=== PATIENT | female | born 1945 | race Caucasian/White ===

== ENCOUNTER 2018-09-29 02:41 | Emergency (ER) | payer OTHER ==
--- NOTE | 2018-09-29 03:26 | PDOC ---
History of Present Illness - General Stated Complaint: VOMITING/DIARRHEA Time Seen by Provider: 09/29/18 03:26 - History of Present Illness Initial Comments: 73 year old female PMhx of Schizophrenia, breast Ca s/p (Lumpectomy and chemo currently in remission), and HTN presenting with nausea, vomiting, and diarrhea for the past day. States her had the exact symptoms two days prior and has now resolved. Her vomiting is NBNB and diarrhea is NB. Her main concern is that she may not get to the bathroom in time and will defecate in her pants. She does not have much abdominal pain but does have some epigastric pain when she vomits. Denies fevers, chills, headache, chest pain, or other symptoms. 09/29/18 03:50 Past History - Past Medical History Allergies/Adverse Reactions: Allergies Allergy/AdvReac Type Severity Reaction Status Date / Time No Known Allergies Allergy Verified 09/29/18 04:01 Home Medications: Ambulatory Orders Atorvastatin Ca [Lipitor] 20 mg PO HS 07/30/15 Fluphenazine HCl [Prolixin -] 3.5 mg PO HS 07/30/15 Quetiapine Fumarate [Seroquel -] 25 mg PO HS 07/30/15 Garlique 1 PO DAILY 09/24/15 Walker [Ultra-Light Rollator] 1 each MC AM #1 each 10/01/15 Anemia: No Asthma: No Cancer: Yes (left breast ca) Cardiac Disorders: No CVA: No COPD: No CHF: No Dementia: No Diabetes: No GI Disorders: No Disorders: No HTN: No Hypercholesterolemia: Yes Liver Disease: No Seizures: No Thyroid Disease: No - Surgical History Abdominal Surgery: No Appendectomy: No Cardiac Surgery: No Cholecystectomy: No Lung Surgery: No Neurologic Surgery: No Orthopedic Surgery: No - Suicide/Smoking/Psychosocial Hx Smoking History: Current every day smoker Have you smoked in the past 12 months: Yes Number of Cigarettes Smoked Daily: 20 'Breaking Loose' booklet given: 09/03/15 Hx Alcohol Use: No Drug/Substance Use Hx: No Substance Use Type: None Hx Substance Use Treatment: No Review of Systems - Review of Systems Constitutional: Yes: Loss of Appetite. No: Chills, Diaphoresis, Fever HEENTM: No: Blurred Vision, Double Vision, Cataracts Respiratory: No: Cough, Orthopnea, Shortness of Breath, SOB with Exertion Cardiac (ROS): No: Chest Pain, Edema, Irregular Heart Rate ABD/GI: Yes: Diarrhea, Nausea, Vomiting. No: Constipated, Poor Appetite, Poor Fluid Intake : No: Burning, Dysuria, Discharge, Frequency Musculoskeletal: No: Gout, Joint Pain, Joint Swelling Integumentary: No: Bruising, Lesions, Lumps Neurological: No: Headache, Numbness, Paresthesia, Tingling Psychiatric: Yes: Anxiety, Depression, Mood Swings Endocrine: No: Flushing, Intolerance to Cold, Intolerance to Heat Hematologic/Lymphatic: No: Anemia, Blood Clots, Easy Bleeding *Physical Exam - Physical Exam General Appearance: Yes: Nourished, Appropriately Dressed. No: Apparent Distress HEENT: positive: EOMI, KENNETH, Normal ENT Inspection, Normal Voice. negative: TMs Normal Neck: positive: Trachea midline, Normal Thyroid, Supple. negative: Tender, Rigid Respiratory/Chest: positive: Lungs Clear, Normal Breath Sounds. negative: Chest Tender, Respiratory Distress, Accessory Muscle Use Cardiovascular: positive: Regular Rhythm, Regular Rate Gastrointestinal/Abdominal: positive: Normal Bowel Sounds, Tender (mild bilateral lower quadrant tenderness), Flat, Soft Lymphatic: negative: Adenopathy, Tenderness Musculoskeletal: positive: Normal Inspection. negative: Decreased Range of Motion Extremity: positive: Normal Capillary Refill, Normal Inspection, Normal Range of Motion. negative: Tender Integumentary: positive: Normal Color, Dry, Warm Neurologic: positive: Fully Oriented, Alert, Normal Mood/Affect, Normal Response , Motor Strength 5/5 ED Treatment Course - LABORATORY CBC & Chemistry Diagram: 09/29/18 04:15 09/29/18 04:55 Medical Decision Making - Medical Decision Making 73 year old schizophrenic female presenting with nausea, vomiting, and diarrhea with lower abdominal pain for the past two days after a positive sick contact ( her who had the same symptoms two days prior). I originally did not want to obtain labs on the patient as she passed the PO challenge with apple juice and a [place] sandwich but she then complained of lower abdominal pain. Her CBC returned with an elevated WBC to 17 but of note her HgB was also 15 with previous values in the 11s so this may be some element of hemoconcentration as opposed to true infection given lack of fever, tachycardia , or other symptoms. Patient pending flat and upright films then reevaluation for discharge. Signed out to Dr. Fontaine in stable condition after drinking two juices and taking a bite of her turkey sandwich. 09/29/18 06:45 *DC/Admit/Observation/Transfer Diagnosis at time of Disposition: Diarrhea Qualifiers: Diarrhea type: unspecified type Qualified Code(s): R19.7 - Diarrhea, unspecified Nausea and vomiting Qualifiers: Vomiting type: unspecified Vomiting Intractability: non-intractable Qualified Code(s): R11.2 - Nausea with vomiting, unspecified - Discharge Dispostion Disposition: HOME Condition at time of disposition: Improved Decision to Admit order: No - Referrals - Patient Instructions - Post Discharge Activity
[2018-09-29 04:03] VITALS: BMI 23.9
[2018-09-29] MEDS ORDERED: SODIUM CHLORIDE 0.9% 500 ML INFUS.BAG IV ONE (04:14)
[2018-09-29] MEDS ORDERED: MAG HYDROX/AL HYDROX/SIMETH 30 ML UNIT-DOSE CUP PO ONE (04:15)
[2018-09-29] MEDS ORDERED: FAMOTIDINE 20 MG/50 ML IVPB 20 MG/50 ML MG IVPB ONE ×2 (04:15→04:22)
[2018-09-29] MEDS ORDERED: MAG HYDROX/AL HYDROX/SIMETH 30 ML UNIT-DOSE CUP ONE (04:22)
[2018-09-29 04:28] LABS: BASO % 0.1 % (0-2.0); EOS % 0.5 % (0-4.5); HEMATOCRIT 45.5 % (32.4-45.2); HEMOGLOBIN 15.8 GM/dL (10.7-15.3); LYMPH % 3.2 % (8-40); MCH 31.1 pg (25.7-33.7); MCHC 34.7 g/dl (32.0-36.0); MEAN CELL VOLUME 89.5 fl (80-96); MEAN PLT VOLUME 9.9 fl (7.5-11.1); MONO % 3.9 % (3.8-10.2); NEUT % 92.3 % (42.8-82.8); PLATELET COUNT 143 K/MM3 (134-434); RBC 5.09 M/mm3 (3.60-5.2); RDW 14.4 % (11.6-15.6); WHITE BLOOD COUNT 16.7 K/mm3 (4.0-10.0)
--- NOTE | 2018-09-29 04:30 | PDOC ---
Attending Attestation - Resident Resident Name: RoseannAnishdesireeloreto - ED Attending Attestation I have performed the following: I have examined & evaluated the patient, The case was reviewed & discussed with the resident, I agree w/resident's findings & plan - HPI HPI: 09/29/18 06:19 N/V/D x 2 days. 09/29/18 20:13 Pt's is admitted to our hospital for GI viral gastroenteritis. She has spent the last couple days with her . - Physicial Exam PE: 09/29/18 20:14 Agree with resident exam - Medical Decision Making 09/29/18 20:14 Pt has normal labs; She will be signed out to the day ER docs. They will monitor her. Pt currently with intractable diarrhea. If she improves she can go home. However, pt lives alone and she has no hoe support. Heart Score/ECG Review - ECG Intrepretation Rhythm: Regular Rhythm - [place]: Normal - P and [place] Prominent R with upright T in V1 (true posterior UT): No Delta Wave(s) Present: No WPW: No - QRS Poor R Wave Progression: No Q Wave Present: No - ST and T Early Repolarization: No Flattened T Waves: No Prolonged Q-T Interval: No - ECG Impressions Normal ECG: Yes Non-specific ST Elevation: No Ischemic Changes: No Bradycardia: No Torsades mikal Pointes: No WPW: No
[2018-09-29] MEDS ORDERED: ACETAMINOPHEN 500 MG TABLET (FP) PO ONE (05:38)
[2018-09-29] MEDS ORDERED: ACETAMINOPHEN 325 MG TABLET (FP) ONE (05:41)
[2018-09-29 06:40] LABS: ALBUMIN 3.6 g/dl (3.4-5.0); ALK PHOS 63 U/L (45-117); AMYLASE 39 U/L (25-115); ANION GAP 6 MMOL/L (8-16); BILIRUBIN,TOTAL 0.7 mg/dL (0.2-1); BLOOD UREA NITROGEN 15 mg/dL (7-18); CALCIUM 7.8 mg/dL (8.5-10.1); CHLORIDE 108 mmol/L (98-107); CO2 25 mmol/L (21-32); CREATININE 0.7 mg/dL (0.55-1.3); GLUCOSE,RANDOM 102 mg/dL (74-106); LIPASE 173 U/L (73-393); POTASSIUM 3.9 mmol/L (3.5-5.1); SGOT/AST 23 U/L (15-37); SGPT/ALT 25 U/L (13-61); SODIUM 139 mmol/L (136-145); TOT PROT 6.4 g/dl (6.4-8.2)
[2018-09-29 08:20] LABS: URINE APPEARANCE Clear; URINE BILIRUBIN Negative (<2.0 mg/dL); URINE COLOR Yellow; URINE GLUCOSE (UA) Negative (NEGATIVE); URINE KETONE Negative (NEGATIVE); URINE LEUK ESTERASE TRACE (NEGATIVE); URINE NITRITE Negative (NEGATIVE); URINE PROTEIN 1+ (NEGATIVE); URINE UROBILINOGEN 0.2 mg/dL (0.2-1.0)
--- NOTE | 2018-09-29 09:08 | PDOC ---
*Physical Exam - Vital Signs Last Vital Signs Temp Pulse Resp BP Pulse Ox 97.6 F 83 18 137/66 97 09/29/18 04:01 09/29/18 04:01 09/29/18 04:01 09/29/18 04:01 09/29/18 04:01 ED Treatment Course - LABORATORY CBC & Chemistry Diagram: 09/29/18 04:15 09/29/18 04:55 - ADDITIONAL ORDERS Additional order review: Laboratory Results 09/29/18 09/29/18 09/29/18 06:25 05:12 04:55 Sodium 139 Potassium 3.9 Chloride 108 H Carbon Dioxide 25 Anion Gap 6 L BUN 15 Creatinine 0.7 Creat Clearance w eGFR > 60 Random Glucose 102 Calcium 7.8 L Total Bilirubin 0.7 AST 23 ALT 25 Alkaline Phosphatase 63 Troponin I < 0.02 Total Protein 6.4 Albumin 3.6 Total Amylase 39 Lipase 173 Urine Color Yellow Urine Appearance Clear Urine pH 5.0 Ur Specific [place] 1.020 Urine Protein 1+ H Urine Glucose (UA) Negative Urine Ketones Negative Urine Blood 2+ H Urine Nitrite Negative Urine Bilirubin Negative Urine Urobilinogen 0.2 Ur Leukocyte Esterase Trace 09/29/18 04:15 Sodium Cancelled Potassium Cancelled Chloride Cancelled Carbon Dioxide Cancelled Anion Gap Cancelled BUN Cancelled Creatinine Cancelled Creat Clearance w eGFR Cancelled Random Glucose Cancelled Calcium Cancelled Total Bilirubin Cancelled AST Cancelled ALT Cancelled Alkaline Phosphatase Cancelled Troponin I Total Protein Cancelled Albumin Cancelled Total Amylase Cancelled Lipase Cancelled Urine Color Urine Appearance Urine pH Ur Specific [place] Urine Protein Urine Glucose (UA) Urine Ketones Urine Blood Urine Nitrite Urine Bilirubin Urine Urobilinogen Ur Leukocyte Esterase 09/29/18 04:15 RBC 5.09 MCV 89.5 MCHC 34.7 RDW 14.4 MPV 9.9 Neutrophils % 92.3 H D Lymphocytes % 3.2 L D Monocytes % 3.9 Eosinophils % 0.5 Basophils % 0.1 - Medications Given in the ED: ED Medications Discontinued Medications Generic Name Dose Route Start Last Admin Trade Name Freq PRN Reason Stop Dose Admin Acetaminophen 1,000 mg 09/29/18 05:38 09/29/18 05:47 Tylenol - PO 09/29/18 05:39 1,000 mg ONCE ONE Administration Al Hydroxide/Mg Hydroxide 30 ml 09/29/18 04:15 09/29/18 04:29 Mylanta Oral Suspension - PO 09/29/18 04:16 30 ml ONCE ONE Administration Famotidine/Sodium Chloride 20 mg in 50 mls @ 100 mls/hr 09/29/18 04:15 04:29 Pepcid 20 Mg Premixed Ivpb - IVPB 09/29/18 04:44 100 mls/hr ONCE ONE Administration Sodium Chloride 1,000 ml 09/29/18 04:14 09/29/18 04:29 Normal Saline - IV 09/29/18 04:15 1,000 ml ONCE ONE Administration Medical Decision Making - Medical Decision Making 09/29/18 09:09 73 year old female PMhx of Schizophrenia, breast Ca s/p (Lumpectomy and chemo currently in remission), and HTN presenting with nausea, vomiting, and diarrhea for the past day. States her had the exact symptoms two days prior and has now resolved. Her vomiting is NBNB and diarrhea is NB. Pending UA and plain films. Pt is ambulatory and tolerating PO. UA shows 2+ blood, slight LE. Not enough urine for WBC or RBC analysis. CXR shows no acute changes. abdominal xray shows stool in colon with air fluid levels (pt is having diarrhea ). Benign abdominal exam. Pt is not complaining of any pain. Pt has white count but could be due to volume contraction. She is afebrile and hemodynamcially stable. She is tolerating PO and able to self hydrate. Will DC home. Given strict return precautions. *DC/Admit/Observation/Transfer Diagnosis at time of Disposition: Diarrhea Qualifiers: Diarrhea type: unspecified type Qualified Code(s): R19.7 - Diarrhea, unspecified Nausea and vomiting Qualifiers: Vomiting type: unspecified Vomiting Intractability: non-intractable Qualified Code(s): R11.2 - Nausea with vomiting, unspecified - Discharge Dispostion Disposition: HOME Condition at time of disposition: Improved - Referrals Referrals: Nelsy Covington MD [Primary Care Provider] - - Patient Instructions Printed Discharge Instructions: Diarrhea, DI for Vomiting -- Adult Additional Instructions: You were seen in the emergency room today for diarrhea, nausea and vomiting. The lab tests were normal. You most likely have a viral infection causing your symptoms. Please keep yourself well hydrated! Drink lots of liquids like water, juice and soups. You can start moving on to solid foods as long as you are able to tolerate liquids. I recommend that you follow up with your doctor in the next few days. Come back to the emergency room if pain gets worse, you cannot stop vomiting, there is blood in the stool, you feel lightheaded or if any new concerning symptom develops. Thank you - Post Discharge Activity
[2018-09-29 09:41] LABS: ANISOCYTOSIS 0; MACROCYTOSIS 0; PLATELET ESTIMATE DECREASED
[2018-09-29 11:01] VITALS: BP 138/69; PULSE 78; TEMP 98.3
--- NOTE | 2018-09-29 16:35 | EKG ---
Test Reason : Blood Pressure : / mmHG Vent. Rate : 079 BPM Atrial Rate : 079 BPM P-R Int : 154 ms QRS Dur : 080 ms QT Int : 390 ms P-R-T Axes : 034 024 074 degrees QTc Int : 447 ms NORMAL SINUS RHYTHM NONSPECIFIC ST ABNORMALITY ABNORMAL ECG WHEN COMPARED WITH ECG OF 11-OCT-2017 09:59, NO SIGNIFICANT CHANGE WAS FOUND Confirmed by Radha Rose ([id number]) on 09/29/2018 4:34:44 PM Referred By: Confirmed By:Radha Rose
== END 2018-09-29 11:17 | disposition home or self-care (01) ==
LOC: JER 02:41
PROC: 3E033GC Introduction of Other Therapeutic Substance into Peripheral Vein, Percutaneous Approach (ICD-10-PCS; principal; 2018-09-29)
DX: B34.9 Viral infection, unspecified (principal); I10 Essential (primary) hypertension; F20.9 Schizophrenia, unspecified; Z85.3 Personal history of malignant neoplasm of breast; F17.210 Nicotine dependence, cigarettes, uncomplicated
CPT/HCPCS: 36415; 71046-TC-FY; 74019-TC-FY; 80053; 81003; 81015; 82150; 83690; 84484; 85025; 93005; 93010; 99283-25

== ENCOUNTER 2019-05-16 10:28 | Emergency (ER) | payer OTHER ==
[2019-05-16 10:37] VITALS: BMI 21.6
--- NOTE | 2019-05-16 11:31 | PDOC ---
History of Present Illness - General Chief Complaint: Injury Stated Complaint: HEAD LAC./FALL Time Seen by Provider: 05/16/19 10:50 History Source: Patient Exam Limitations: No Limitations - History of Present Illness Initial Comments: 05/16/19 11:29 74F with a PMH of Schizophrenia, breast Ca s/p (Lumpectomy and chemo currently in remission), and HTN, on 81mg asa, who presents to the ER with complaints of a fall. The patient is with her . The patient states that her and her were walking on an uneven sidewalk when she tripped on the sidewalk and fell face forward. The patient admits to pain in her R knee, R hand, and on her face. She denies syncope, lightheadedness, palpitations, CP, SOB, nausea, vomiting, and diaphoresis. Past History - Past Medical History Allergies/Adverse Reactions: Allergies Allergy/AdvReac Type Severity Reaction Status Date / Time No Known Allergies Allergy Verified 05/16/19 10:33 Home Medications: Ambulatory Orders Aspirin [Adult Aspirin] 81 mg PO DAILY 09/29/18 Atorvastatin Calcium [Lipitor] 20 mg PO HS 09/29/18 Cholecalciferol (Vitamin D3) [Vitamin D3 -] 0 unit PO DAILY 09/29/18 Fluphenazine HCl 3.5 mg PO DAILY 09/29/18 Quetiapine Fumarate [Seroquel -] 25 mg PO HS 09/29/18 Amox-Tr/K Cl [Augmentin - 875Mg Tablet] 1 tab PO BID #20 tablet 05/16/19 Anemia: No Asthma: No Cancer: Yes (left breast ca) Cardiac Disorders: No CVA: No COPD: No CHF: No Dementia: No Diabetes: No GI Disorders: No Disorders: No HTN: No Hypercholesterolemia: Yes Liver Disease: No Seizures: No Thyroid Disease: No - Surgical History Abdominal Surgery: No Appendectomy: No Cardiac Surgery: No Cholecystectomy: No Lung Surgery: No Neurologic Surgery: No Orthopedic Surgery: No - Immunization History Immunization Up to Date: Yes - Suicide/Smoking/Psychosocial Hx Smoking History: Never smoked Have you smoked in the past 12 months: Yes Number of Cigarettes Smoked Daily: 20 Information on smoking cessation initiated: No 'Breaking Loose' booklet given: 09/03/15 Hx Alcohol Use: No Drug/Substance Use Hx: No Substance Use Type: None Hx Substance Use Treatment: No Review of Systems - Review of Systems Able to Perform ROS?: Yes Comments:: 05/16/19 12:59 GENERAL/CONSTITUTIONAL: + for fall. No fever or chills. No weakness. HEAD, EYES, EARS, NOSE AND THROAT: No change in vision. No ear pain or discharge. No sore throat. CARDIOVASCULAR: No chest pain, palpitations, or lightheadedness. RESPIRATORY: No cough, wheezing, shortness of breath, or hemoptysis. GASTROINTESTINAL: No abdominal pain, nausea, vomiting, diarrhea, or constipation. GENITOURINARY: No dysuria, frequency, hematuria, or change in urination. MUSCULOSKELETAL: + for R knee, R hand, and pain in face. No neck or back pain. SKIN: No rash or lesions. NEUROLOGIC: No headache, numbness, tingling, focal weakness, loss of consciousness, or change in strength/sensation. Is the patient limited Croatian proficient: No *Physical Exam - Vital Signs Last Vital Signs Temp Pulse Resp BP Pulse Ox 97.6 F 83 16 151/78 97 05/16/19 10:33 05/16/19 10:33 05/16/19 10:33 05/16/19 10:33 05/16/19 10:33 - Physical Exam Comments: 05/16/19 12:59 GENERAL: Well developed, well nourished. Awake and alert. No acute distress. HEENT: Hearing grossly normal. Moist mucous membranes. PERRLA, EOMI. No conjunctival pallor. Sclera are non-icteric. NECK: Supple. Full ROM. No JVD. Carotid pulses 2+ and symmetric, without bruits. No thyromegaly. No lymphadenopathy. CARDIOVASCULAR: Regular rate and rhythm. No murmurs, rubs, or gallops. PULMONARY: No evidence of respiratory distress. Lungs clear to auscultation bilaterally. No wheezing, rales or rhonchi. ABDOMINAL: Soft. Non-tender. Non-distended. No rebound or guarding. No organomegaly. Normoactive bowel sounds. MUSCULOSKELETAL: Abrasion over R knee w/o TTP over knee or patella. Abrasion over ulnar aspect of R hand. Abrasion over nasal bridge w/o laceration. Abrasion over forehead. Normal range of motion at all joints. EXTREMITIES: No cyanosis. No clubbing. No edema. No calf tenderness or swelling. SKIN: Warm and dry. Normal capillary refill. No rashes. No jaundice. NEUROLOGICAL: Alert, awake, appropriate. Cranial nerves 2-12 grossly intact. Normal speech. Gait is normal without ataxia. PSYCHIATRIC: Cooperative. Good eye contact. Appropriate mood and affect. ED Treatment Course - RADIOLOGY Radiology Studies Ordered: Category Date Time Status CERVICAL SPINE CT W/O CONTR [CT] Stat CT Scan 05/16/19 10:[address] W/O CONTRAST [CT] Stat CT Scan 05/16/19 10:[address] WITHOUT CONTRAST [CT] Stat CT Scan 05/16/19 10:54 Ordered CHEST PA & LAT [RAD] Stat Radiology 05/16/19 10:55 Ordered KNEE 3 POS-RIGHT [RAD] Stat Radiology 05/16/19 10:55 Ordered PELVIS [RAD] Stat Radiology 05/16/19 10:55 Ordered Medical Decision Making - Medical Decision Making 05/16/19 13:01 74F who presents after a mechanical fall. Will XR hand and knee. CT of head, facial bones, and c-spine. Pt well appearing without any repairable lacerations. Pt noted to have abrasions. Pending XR and CT's. 05/16/19 13:22 CT shows b/l anterior nasal bone fractures. Due to questionable laceration on nose, will treat as open fracture with abx. 05/16/19 14:24 Nasal lac cleaned and placed w/ baci. NOT a laceration, it is an abrasion. Will treat with abx and have PCP and ENT f/u. *DC/Admit/Observation/Transfer Diagnosis at time of Disposition: Nasal bone fracture Qualifiers: Encounter type: initial encounter Fracture type: closed Qualified Code(s): S02.2XXA - Fracture of nasal bones, initial encounter for closed fracture - Discharge Dispostion Disposition: HOME Condition at time of disposition: Stable Decision to Admit order: No - Prescriptions Prescriptions: Amox-Tr/K Cl [Augmentin - 875Mg Tablet] 1 tab PO BID #20 tablet - Referrals Referrals: Nelsy Covington MD [Primary Care Provider] - - Patient Instructions Additional Instructions: Please follow up with Dr. Ravi in 2-3 days. Please see your primary care doctor in 1-2 days. Please return to the ER if you develop any numbness, tingling, weakness, fever, chills, nausea, vomiting, chest pain, or shortness of breath. Please keep your wounds clean and covered in bacitracin 3-4 times per day. - Post Discharge Activity
[2019-05-16] MEDS ORDERED: DIPHTH,PERTUSS(ACELL),TET 0.5 ML DISP.SYRIN IM ONE ×2 (11:34→12:22)
--- NOTE | 2019-05-16 11:34 | PDOC ---
Attending Attestation - Resident Resident Name: Zackary Oconnor - ED Attending Attestation I have performed the following: I have examined & evaluated the patient, The case was reviewed & discussed with the resident, I agree w/resident's findings & plan, Exceptions are as noted - HPI HPI: 05/16/19 11:30 74 F with h/o Schizophrenia, breast Ca s/p (Lumpectomy and chemo currently in remission), and HTN presenting to ED after trip and fall. Pt was walking outside when she tripped over a bump in the sidewalk and fell forward. Pt landed on her R knee and R hand. Pt also hit her head against the ground face first. Denies LOC. Denies any preceding dizziness/lightheadedness. No CP/SOB/ palpitations. Pt now reports frontal headache. Denies N/V. - Physicial Exam PE: 05/16/19 11:31 Agree with resident exam - Medical Decision Making 05/16/19 11:34 74 F with mechanical fall, with abrasions to face, forehead, R hand, and R knee. - CT head/c-spine/facial bones - XRs - Tdap 05/16/19 12:55 CT shows bilateral nasal bone fxs Imaging otherwise negative Pt refused hand and knee X rays Will give abx ppx for open nasal bone fx Pt is well appearing, with normal vitals. Clinically stable for DC at this time. I discussed the physical exam findings, ancillary test results and final diagnoses with the patient. I answered all of the patient's questions. The patient was satisfied with the care received and felt comfortable with the discharge plan and treatment plan. The patient agrees to follow up with the primary care physician within 24-72 hours.
[2019-05-16] MEDS ORDERED: BACITRACIN 15 GM TUBE TOPICAL OINTMENT ONE (12:36)
[2019-05-16] MEDS ORDERED: ACETAMINOPHEN 325 MG TABLET (FP) PO ONE (14:03)
[2019-05-16] MEDS ORDERED: BACITRACIN 15 GM TUBE TOPICAL OINTMENT TP ONE (14:05)
[2019-05-16] MEDS ORDERED: BACITRACIN 0.9 GM PACKET ONE (14:05)
[2019-05-16] MEDS ORDERED: ACETAMINOPHEN 325 MG TABLET (FP) ONE (14:20)
[2019-05-16 14:47] VITALS: BP 116/79; PULSE 68; TEMP 97.8
== END 2019-05-16 14:30 | disposition home or self-care (01) ==
LOC: JER 10:28
PROC: 3E0234Z Introduction of Serum, Toxoid and Vaccine into Muscle, Percutaneous Approach (ICD-10-PCS; principal; 2019-05-16)
DX: S02.2XXA Fracture of nasal bones, initial encounter for closed fracture (principal); S80.211A Abrasion, right knee, initial encounter; S60.511A Abrasion of right hand, initial encounter; W18.39XA Other fall on same level, initial encounter; Y93.01 Activity, walking, marching and hiking; Y92.480 Sidewalk as the place of occurrence of the external cause; Y99.8 Other external cause status; I10 Essential (primary) hypertension; E78.00 Pure hypercholesterolemia, unspecified; F20.9 Schizophrenia, unspecified; Z85.3 Personal history of malignant neoplasm of breast
CPT/HCPCS: 70450-TC; 70486-TC; 71046-TC-FY; 72125-TC; 72170-TC-FY; 90715; 99282-25

== ENCOUNTER 2020-03-16 09:06 | Day surgery (SDC) | payer OTHER ==
[2020-03-11 14:25] VITALS: BMI 21.9
[2020-03-16 12:51] VITALS: BP 143/62; PULSE 76; TEMP 98.9
--- NOTE | 2020-03-17 14:10 | PATH ---
Surgical Pathology Report Patient Name: CINDY SALCEDO [facility]. Rec. #: [id number] /Age/Gender: 1945 (Age: 74) / F Account: [id number] Location: ASU-ENDOSCOPY Taken: 03/16/2020 Received: 03/16/2020 Reported: 03/17/2020 Physicians: Rolanda Rosenthal M.D. Specimen(s) Received A: SIGMOID POLYPS B: HEPATIC FLEXURE C: RECTAL POLYPS Clinical History Positive cologuard test Postoperative diagnosis: Colon polyps, diverticulosis, hemorrhoids Final Diagnosis A. SIGMOID COLON, POLYPS, BIOPSY: HYPERPLASTIC POLYP(S). B. COLON, HEPATIC FLEXURE, POLYPECTOMY: TUBULAR ADENOMA. C. RECTAL POLYPS, BIOPSY/POLYPECTOMY: HYPERPLASTIC POLYP(S). Electronically Signed Juana Segura M.D. Gross Description A. Received in formalin, labeled "sigmoid polyps biopsy" are 2 bowman, irregular portions of soft tissue averaging 0.3 cm. in greatest dimension. The specimens are submitted in toto in one cassette. B. Received in formalin, labeled "hepatic flexure" is a bowman, polypoid portion of soft tissue measuring 0.7 cm. in greatest dimension. The specimen is submitted in toto in one cassette. C. Received in formalin, labeled "rectal polyps biopsy" are 5 bowman, irregular portions of soft tissue ranging from 0.1-0.4 cm. in greatest dimension. The specimens are submitted in toto in one cassette. DL/03/16/2020 saudi/03/16/2020
== END 2020-03-16 12:35 | disposition home or self-care (01) ==
LOC: JASU-ENDO 09:06
PROVIDERS: ATTEND Internal Medicine Gastroenterology
PROC: 0DBL8ZX Excision of Transverse Colon, Via Natural or Artificial Opening Endoscopic, Diagnostic (ICD-10-PCS; 2020-03-16)
PROC: 0DBN8ZX Excision of Sigmoid Colon, Via Natural or Artificial Opening Endoscopic, Diagnostic (ICD-10-PCS; 2020-03-16)
PROC: 3E0H8GC Introduction of Other Therapeutic Substance into Lower GI, Via Natural or Artificial Opening Endoscopic (ICD-10-PCS; 2020-03-16)
PROC: 0DBP8ZX Excision of Rectum, Via Natural or Artificial Opening Endoscopic, Diagnostic (ICD-10-PCS; principal; 2020-03-16 10:00)
DX: Z12.11 Encounter for screening for malignant neoplasm of colon (principal); D12.5 Benign neoplasm of sigmoid colon; D12.3 Benign neoplasm of transverse colon; K62.1 Rectal polyp; K57.30 Diverticulosis of large intestine without perforation or abscess without bleeding; K64.8 Other hemorrhoids
CPT/HCPCS: 88305-TC

== ENCOUNTER 2023-07-15 16:29 | Inpatient (IN) | payer OTHER ==
[2023-07-15 16:46] VITALS: BMI 19.6
[2023-07-15 18:35] LABS: HEMATOCRIT 35.5 % (32.4-45.2); MCH 27.5 pg (25.7-33.7); MCHC 33.8 g/dl (32.0-36.0); MEAN CELL VOLUME 81.4 fl (80-96); MEAN PLT VOLUME 9.1 fl (7.5-11.1); PLATELET COUNT 352 10^3/uL (134-434); RBC 4.36 M/mm3 (3.60-5.2); RDW 15.3 % (11.6-15.6); WHITE BLOOD COUNT 20.9 K/mm3 (4.0-10.0)
[2023-07-15 18:39] LABS: EPI CELLS 2 /uL (0-25.1); HYALINE CASTS 0 /uL (0-3.1); PH,URINE 5.5 (5.0-8.0); URINE APPEARANCE CLEAR; URINE BACTERIA 8 /uL (0-1359); URINE BILIRUBIN NEGATIVE (NEGATIVE); URINE COLOR YELLOW; URINE GLUCOSE (UA) NEGATIVE (NEGATIVE); URINE KETONE NEGATIVE (NEGATIVE); URINE LEUK ESTERASE NEGATIVE (NEGATIVE); URINE NITRITE NEGATIVE (NEGATIVE); URINE PROTEIN NEGATIVE (NEGATIVE); URINE RBC 31 /uL (0-23.9); URINE UROBILINOGEN 0.2 mg/dL (0.2-1.0); URINE WBC 4 /uL (0-25.8)
[2023-07-15 18:40] LABS: POTASSIUM 4.3 mmol/L (3.5-5.1)
[2023-07-15 18:42] LABS: CALCIUM 8.3 mg/dL (8.5-10.1)
[2023-07-15 18:43] LABS: ALBUMIN 3.3 g/dl (3.4-5.0); BLOOD UREA NITROGEN 8.4 mg/dL (7-18); MAGNESIUM 2.1 mg/dL (1.8-2.4)
[2023-07-15 18:43] LABS: INR 1.16 (0.83-1.09); PROTHROMBIN TIME (PATIENT) 13.4 SEC (9.7-13.0)
[2023-07-15 18:46] LABS: ACTIVATED PTT 27.9 SECONDS (25.2-36.5)
[2023-07-15 18:46] LABS: CREATININE 0.5 mg/dL (0.55-1.3)
[2023-07-15 18:47] LABS: BILIRUBIN,TOTAL 0.5 mg/dL (0.2-1)
[2023-07-15] MEDS ORDERED: AZITHROMYCIN IVPB 500 MG in DEXTROSE 5%-WATER - 250 ML IVPB ONE (19:32)
[2023-07-15] MEDS ORDERED: CEFTRIAXONE 1,000 MG in DEXTROSE 5%-WATER - 50 ML IVPB ONE (19:32)
[2023-07-15] MEDS ORDERED: AZITHROMYCIN IVPB 500 MG/250 ML BAG IVPB ONE (19:42)
[2023-07-15] MEDS ORDERED: CEFTRIAXONE 1 GM/50 ML BAG ONE (19:42)
[2023-07-15 20:20] LABS: ANISOCYTOSIS 1+; MACROCYTOSIS 0; PLATELET ESTIMATE NORMAL
[2023-07-15] MEDS ORDERED: QUEtiapine FUMARATE 25 MG TABLET ONE (23:14)
[2023-07-15] MEDS: QUEtiapine FUMARATE 25 MG TABLET PO SCH (23:29)
[2023-07-15] MEDS: DEXTROSE 5%-0.45% SALINE 1,000 ML IV SCH (23:29)
[2023-07-15] MEDS: FLUPHENAZINE HCL PO SCH (23:29)
[2023-07-16 06:24] LABS: HEMATOCRIT 33.7 % (32.4-45.2); MCHC 32.5 g/dl (32.0-36.0); MEAN CELL VOLUME 82.9 fl (80-96); MEAN PLT VOLUME 9.2 fl (7.5-11.1); PLATELET COUNT 331 10^3/uL (134-434); RBC 4.06 M/mm3 (3.60-5.2); RDW 15.6 % (11.6-15.6); WHITE BLOOD COUNT 21.4 K/mm3 (4.0-10.0)
[2023-07-16 06:47] LABS: CALCIUM 8.2 mg/dL (8.5-10.1)
[2023-07-16 06:48] LABS: ALBUMIN 2.9 g/dl (3.4-5.0); BLOOD UREA NITROGEN 6.5 mg/dL (7-18)
[2023-07-16 06:50] LABS: CREATININE 0.6 mg/dL (0.55-1.3)
[2023-07-16 06:51] LABS: BILIRUBIN,TOTAL 0.6 mg/dL (0.2-1)
[2023-07-16 06:53] LABS: TOT PROT 6.2 g/dl (6.4-8.2)
[2023-07-16] MEDS ORDERED: CEFTRIAXONE 1 GM/50 ML BAG ONE (08:10)
[2023-07-16] MEDS ORDERED: AZITHROMYCIN IVPB 500 MG/250 ML BAG IVPB ONE (08:10)
[2023-07-16 08:51] LABS: ANISOCYTOSIS 2+; MACROCYTOSIS 0; OVALOCYTE 1+
[2023-07-16] MEDS: CEFTRIAXONE 1 GM in DEXTROSE 5%-WATER - 50 ML IVPB SCH (10:15)
[2023-07-16] MEDS ORDERED: ACETAMINOPHEN 325 MG TABLET (FP) ONE ×2 (13:22→19:46)
[2023-07-16] MEDS: ACETAMINOPHEN 325 MG TABLET (FP) PO PRN ×2 (13:28→19:48)
[2023-07-16] MEDS: AZITHROMYCIN IVPB 500 MG/250 ML BAG IVPB SCH (14:17)
[2023-07-16] MEDS ORDERED: ATORVASTATIN CA 20 MG TABLET (FP) ONE (20:51)
[2023-07-16] MEDS ORDERED: QUEtiapine FUMARATE 25 MG TABLET ONE (20:51)
[2023-07-16] MEDS: ATORVASTATIN CA 20 MG TABLET (FP) PO SCH (21:26)
[2023-07-16] MEDS: FLUPHENAZINE HCL PO SCH (21:26)
[2023-07-16] MEDS: QUEtiapine FUMARATE 25 MG TABLET PO SCH (21:26)
[2023-07-16] MEDS: DEXTROSE 5%-0.45% SALINE 1,000 ML IV SCH (21:53)
[2023-07-17] MEDS: ACETAMINOPHEN 325 MG TABLET (FP) PO PRN (09:10)
[2023-07-17] MEDS: CEFTRIAXONE 1 GM in DEXTROSE 5%-WATER - 50 ML IVPB SCH (09:13)
[2023-07-17] MEDS: AZITHROMYCIN IVPB 500 MG/250 ML BAG IVPB SCH (10:55)
[2023-07-17 11:44] LABS: BASO % 0.8 % (0-2.0); EOS % 2.2 % (0-4.5); HEMOGLOBIN 10.7 GM/dL (10.7-15.3); MCH 27.1 pg (25.7-33.7); MCHC 32.5 g/dl (32.0-36.0); MEAN CELL VOLUME 83.3 fl (80-96); MEAN PLT VOLUME 8.6 fl (7.5-11.1); MONO % 2.3 % (3.8-10.2); NEUT % 88.7 % (42.8-82.8); PLATELET COUNT 327 10^3/uL (134-434); RBC 3.96 M/mm3 (3.60-5.2); RDW 15.4 % (11.6-15.6); WHITE BLOOD COUNT 19.8 K/mm3 (4.0-10.0)
[2023-07-17 12:24] LABS: ALBUMIN 2.9 g/dl (3.4-5.0); CALCIUM 8.2 mg/dL (8.5-10.1)
[2023-07-17 12:27] LABS: CREATININE 0.5 mg/dL (0.55-1.3)
[2023-07-17 12:29] LABS: BILIRUBIN,TOTAL 0.5 mg/dL (0.2-1); TOT PROT 6.1 g/dl (6.4-8.2)
[2023-07-17] MEDS: QUEtiapine FUMARATE 25 MG TABLET PO SCH (21:26)
[2023-07-17] MEDS: ATORVASTATIN CA 20 MG TABLET (FP) PO SCH (21:26)
[2023-07-17] MEDS: FLUPHENAZINE HCL PO SCH (21:27)
[2023-07-18] MEDS: DEXTROSE 5%-0.45% SALINE 1,000 ML IV SCH ×2 (01:17→22:59)
[2023-07-18] MEDS: CEFTRIAXONE 1 GM in DEXTROSE 5%-WATER - 50 ML IVPB SCH (09:42)
[2023-07-18] MEDS: AZITHROMYCIN IVPB 500 MG/250 ML BAG IVPB SCH (09:43)
[2023-07-18] MEDS: ACETAMINOPHEN 325 MG TABLET (FP) PO PRN (09:43)
[2023-07-18] MEDS: FLUPHENAZINE HCL PO SCH (22:58)
[2023-07-18] MEDS: QUEtiapine FUMARATE 25 MG TABLET PO SCH (22:59)
[2023-07-18] MEDS: ATORVASTATIN CA 20 MG TABLET (FP) PO SCH (22:59)
[2023-07-19] MEDS: CEFTRIAXONE 1 GM in DEXTROSE 5%-WATER - 50 ML IVPB SCH (09:44)
[2023-07-19] MEDS: AZITHROMYCIN IVPB 500 MG/250 ML BAG IVPB SCH (09:49)
[2023-07-19] MEDS: ATORVASTATIN CA 20 MG TABLET (FP) PO SCH (21:27)
[2023-07-19] MEDS: QUEtiapine FUMARATE 25 MG TABLET PO SCH (21:27)
[2023-07-19] MEDS: FLUPHENAZINE HCL PO SCH (21:27)
[2023-07-19] MEDS: ACETAMINOPHEN 325 MG TABLET (FP) PO PRN (21:28)
[2023-07-20] MEDS: DEXTROSE 5%-0.45% SALINE 1,000 ML IV SCH ×2 (01:15→20:43)
[2023-07-20] MEDS: CEFTRIAXONE 1 GM in DEXTROSE 5%-WATER - 50 ML IVPB SCH (09:22)
[2023-07-20] MEDS: AZITHROMYCIN IVPB 500 MG/250 ML BAG IVPB SCH (11:27)
[2023-07-20] MEDS: ACETAMINOPHEN 325 MG TABLET (FP) PO PRN (20:47)
[2023-07-20 20:50] VITALS: RESP 17
[2023-07-20] MEDS: FLUPHENAZINE HCL PO SCH (21:30)
[2023-07-20] MEDS: ATORVASTATIN CA 20 MG TABLET (FP) PO SCH (21:30)
[2023-07-20] MEDS: QUEtiapine FUMARATE 25 MG TABLET PO SCH (21:30)
[2023-07-21] MEDS: DEXTROSE 5%-0.45% SALINE 1,000 ML IV SCH (01:25)
[2023-07-21] MEDS: CEFTRIAXONE 1 GM in DEXTROSE 5%-WATER - 50 ML IVPB SCH (10:59)
[2023-07-21] MEDS: AZITHROMYCIN IVPB 500 MG/250 ML BAG IVPB SCH (11:02)
[2023-07-21 13:26] VITALS: BP 126/61; PULSE 78; TEMP 97.8
== END 2023-07-21 14:34 | disposition home or self-care (01) | DRG 377 ==
LOC: JER 16:29 → JERBED 19:17 → J4S 07-17 02:03
PROVIDERS: ADMIT Internal Medicine; ATTEND Internal Medicine
DX: K62.5 Hemorrhage of anus and rectum (principal); J18.9 Pneumonia, unspecified organism; K55.9 Vascular disorder of intestine, unspecified; C34.90 Malignant neoplasm of unspecified part of unspecified bronchus or lung; E78.5 Hyperlipidemia, unspecified; F20.9 Schizophrenia, unspecified
CPT/HCPCS: 0241U-QW; 36415; 71045-TC-FY; 71250-TC; 74177-TC; 80053; 81003; 82272; 83690; 83735; 84484; 85025; 85610; 85730; 86140; 86850; 86900; 86901; 87040; 87086; 93005; 93010; 99285-25; Q9967

== ENCOUNTER 2023-08-22 22:02 | Inpatient (IN) | payer OTHER ==
[2023-08-22] MEDS ORDERED: ALBUTEROL SO4 2.5/IPRATROPIUM 0.5 INH SOL 3 ML VIAL.NEB. NEB ONE ×2 (22:27→22:28)
[2023-08-22] MEDS ORDERED: SODIUM CHLORIDE 0.9% 500 ML INFUS.BAG IV ONE (22:28)
[2023-08-22] MEDS: ALBUTEROL SO4 2.5/IPRATROPIUM 0.5 INH SOL 3 ML VIAL.NEB. NEB SCH ×4 (22:30→23:13)
[2023-08-22 22:49] LABS: HEMATOCRIT 41.6 % (32.4-45.2); HEMOGLOBIN 13.5 GM/dL (10.7-15.3); MCH 27.2 pg (25.7-33.7); MCHC 32.6 g/dl (32.0-36.0); MEAN CELL VOLUME 83.7 fl (80-96); MEAN PLT VOLUME 8.8 fl (7.5-11.1); PLATELET COUNT 460 10^3/uL (134-434); RBC 4.97 M/mm3 (3.60-5.2); RDW 15.7 % (11.6-15.6)
[2023-08-22 22:51] LABS: WHITE BLOOD COUNT 41.5 K/mm3 (4.0-10.0)
[2023-08-22 22:54] LABS: VENOUS BASE EXCESS -6.2 mmol/L (-2-2); VENOUS O2 SATURATION 63.3 % (70-80); VENOUS PCO2 43.6 mmHg (38-52); VENOUS PH 7.285 (7.310-7.410)
[2023-08-22 23:09] LABS: POTASSIUM 4.8 mmol/L (3.5-5.1)
[2023-08-22 23:12] LABS: CALCIUM 8.6 mg/dL (8.5-10.1)
[2023-08-22 23:13] LABS: ALBUMIN 3.2 g/dl (3.4-5.0); BLOOD UREA NITROGEN 9.2 mg/dL (7-18)
[2023-08-22 23:16] LABS: BILIRUBIN,TOTAL 0.5 mg/dL (0.2-1); CREATININE 0.9 mg/dL (0.55-1.3); TOT PROT 7.1 g/dl (6.4-8.2)
[2023-08-23] MEDS ORDERED: PIPERACILLIN/TAZOB 4.5 GM 4.5 GM in DEXTROSE 5%-WATER 100 ML IVPB ONE (00:24)
[2023-08-23] MEDS ORDERED: VANCOMYCIN 1,000 MG in DEXTROSE 5%-WATER - 250 ML IVPB ONE (00:24)
[2023-08-23] MEDS ORDERED: PIPERACILLIN/TAZOB 4.5 GM 4.5 GM/100 ML BAG IVPB ONE (00:34)
[2023-08-23] MEDS ORDERED: VANCOMYCIN 1 GRAM (PRE-DOCKED) 1,000 MG/250 ML BAG IVPB ONE (01:35)
[2023-08-23] MEDS ORDERED: DOCUSATE SODIUM 100 MG CAPSULE (FP) PO PRN (05:46)
[2023-08-23] MEDS ORDERED: ACETAMINOPHEN 1000 MG/100 ML BAG IVPB PRN (05:58)
[2023-08-23] MEDS: SODIUM CHLORIDE 1,000 ML IV SCH ×2 (06:40→14:54)
[2023-08-23 07:28] LABS: HEMATOCRIT 33.8 % (32.4-45.2); HEMOGLOBIN 11.1 GM/dL (10.7-15.3); MCH 27.1 pg (25.7-33.7); MCHC 32.8 g/dl (32.0-36.0); MEAN CELL VOLUME 82.5 fl (80-96); MEAN PLT VOLUME 8.5 fl (7.5-11.1); PLATELET COUNT 392 10^3/uL (134-434); RDW 15.2 % (11.6-15.6)
[2023-08-23 07:33] LABS: INR 1.19 (0.83-1.09); PROTHROMBIN TIME (PATIENT) 13.8 SEC (9.7-13.0)
[2023-08-23 07:36] LABS: ACTIVATED PTT 27.1 SECONDS (25.2-36.5)
[2023-08-23 07:53] LABS: POTASSIUM 3.8 mmol/L (3.5-5.1); WHITE BLOOD COUNT 51.4 K/mm3 (4.0-10.0)
[2023-08-23 07:55] LABS: CALCIUM 8.6 mg/dL (8.5-10.1)
[2023-08-23 07:57] LABS: BLOOD UREA NITROGEN 8.3 mg/dL (7-18)
[2023-08-23 08:00] LABS: CREATININE 0.7 mg/dL (0.55-1.3)
[2023-08-23] MEDS ORDERED: VANCOMYCIN/WATER FOR INJ (PEG) 750 MG/150 ML BAG IVPB SCH (08:45)
[2023-08-23] MEDS ORDERED: PIPERACILLIN/TAZOB 3.375 GM 3.375 GM/50 ML BAG IVPB ONE ×2 (08:52→09:09)
[2023-08-23] MEDS ORDERED: PIPERACILLIN/TAZOB 3.375 GM 3.375 GM in DEXTROSE 5%-WATER - 50 ML IVPB SCH (09:00)
[2023-08-23 09:25] LABS: ANISOCYTOSIS 2+; MACROCYTOSIS 0
[2023-08-23 11:42] LABS: URINE APPEARANCE CLEAR; URINE BILIRUBIN NEGATIVE (NEGATIVE); URINE COLOR YELLOW; URINE GLUCOSE (UA) NEGATIVE (NEGATIVE)
[2023-08-23 11:43] LABS: PH,URINE 5.5 (5.0-8.0); URINE KETONE NEGATIVE (NEGATIVE); URINE LEUK ESTERASE NEGATIVE (NEGATIVE); URINE NITRITE NEGATIVE (NEGATIVE); URINE PROTEIN TRACE (NEGATIVE); URINE UROBILINOGEN 0.2 mg/dL (0.2-1.0)
[2023-08-23] MEDS ORDERED: VANCOMYCIN 1,000 MG in DEXTROSE 5%-WATER - 250 ML IVPB SCH (14:00)
[2023-08-23] MEDS ORDERED: PIPERACILLIN/TAZOBACTAM 3.375 GM VIAL IVPB ONE ×2 (14:33→20:50)
[2023-08-23] MEDS: PIPERACILLIN/TAZOB 3.375 GM 3.375 GM in DEXTROSE 5%-WATER - 50 ML IVPB SCH ×2 (14:54→21:32)
[2023-08-23] MEDS: HEPARIN NA (PORCINE) 5,000 UNITS/ML 1ML VIAL SQ SCH ×2 (14:54→21:33)
[2023-08-23] MEDS: methylPREDNISolone NA SUCC 40 MG/1 ML VIAL IVPUSH SCH ×2 (15:01→17:18)
[2023-08-23 15:34] VITALS: BMI 19.3
[2023-08-23] MEDS: ALBUTEROL SO4 2.5/IPRATROPIUM 0.5 INH SOL 3 ML VIAL.NEB. NEB SCH ×2 (15:59→20:14)
[2023-08-23] MEDS: CHOLECALCIFEROL (VIT D3) 1,000 UNIT (25 MCG) TABLET PO SCH (18:04)
[2023-08-23] MEDS: VITAMIN B COMPLEX W/C COMBO TABLET (FP) PO SCH (18:04)
[2023-08-23] MEDS: QUEtiapine FUMARATE 25 MG TABLET PO SCH (21:33)
[2023-08-23] MEDS: ATORVASTATIN CA 20 MG TABLET (FP) PO SCH (21:33)
[2023-08-23] MEDS: FLUPHENAZINE HCL PO SCH (22:51)
[2023-08-23 23:00] VITALS: RESP 18
[2023-08-23] MEDS: BUDESONIDE/FORMETEROL FUMARATE 160/4.5 mcg INHALER IH SCH (23:02)
[2023-08-24] MEDS ORDERED: VANCOMYCIN/WATER FOR INJ (PEG) 750 MG/150 ML BAG IVPB SCH ×2 (02:00)
[2023-08-24] MEDS: methylPREDNISolone NA SUCC 40 MG/1 ML VIAL IVPUSH SCH ×3 (02:11→17:08)
[2023-08-24] MEDS: PIPERACILLIN/TAZOB 3.375 GM 3.375 GM in DEXTROSE 5%-WATER - 50 ML IVPB SCH ×4 (02:26→20:41)
[2023-08-24] MEDS: ALBUTEROL SO4 2.5/IPRATROPIUM 0.5 INH SOL 3 ML VIAL.NEB. NEB SCH ×4 (07:42→20:04)
[2023-08-24] MEDS: HEPARIN NA (PORCINE) 5,000 UNITS/ML 1ML VIAL SQ SCH ×2 (09:16→21:14)
[2023-08-24] MEDS: VITAMIN B COMPLEX W/C COMBO TABLET (FP) PO SCH (09:17)
[2023-08-24] MEDS: BUDESONIDE/FORMETEROL FUMARATE 160/4.5 mcg INHALER IH SCH ×2 (09:17→21:18)
[2023-08-24] MEDS: CHOLECALCIFEROL (VIT D3) 1,000 UNIT (25 MCG) TABLET PO SCH (09:48)
[2023-08-24] MEDS ORDERED: PIPERACILLIN/TAZOBACTAM 3.375 GM VIAL IVPB ONE (20:25)
[2023-08-24] MEDS: FLUPHENAZINE HCL PO SCH (21:13)
[2023-08-24] MEDS: ATORVASTATIN CA 20 MG TABLET (FP) PO SCH (21:14)
[2023-08-24] MEDS: QUEtiapine FUMARATE 25 MG TABLET PO SCH (21:14)
[2023-08-25] MEDS: methylPREDNISolone NA SUCC 40 MG/1 ML VIAL IVPUSH SCH ×3 (01:55→17:23)
[2023-08-25] MEDS: PIPERACILLIN/TAZOB 3.375 GM 3.375 GM in DEXTROSE 5%-WATER - 50 ML IVPB SCH ×4 (03:15→21:30)
[2023-08-25] MEDS: ALBUTEROL SO4 2.5/IPRATROPIUM 0.5 INH SOL 3 ML VIAL.NEB. NEB SCH ×4 (07:07→20:30)
[2023-08-25] MEDS ORDERED: PIPERACILLIN/TAZOBACTAM 3.375 GM VIAL IVPB ONE (09:31)
[2023-08-25 09:45] LABS: HEMATOCRIT 32.8 % (32.4-45.2); HEMOGLOBIN 10.9 GM/dL (10.7-15.3); MCH 27.3 pg (25.7-33.7); MCHC 33.2 g/dl (32.0-36.0); MEAN CELL VOLUME 82.2 fl (80-96); MEAN PLT VOLUME 9.1 fl (7.5-11.1); PLATELET COUNT 360 10^3/uL (134-434); RBC 3.99 M/mm3 (3.60-5.2); RDW 15.7 % (11.6-15.6); WHITE BLOOD COUNT 27.8 K/mm3 (4.0-10.0)
[2023-08-25] MEDS: CHOLECALCIFEROL (VIT D3) 1,000 UNIT (25 MCG) TABLET PO SCH (09:46)
[2023-08-25] MEDS: HEPARIN NA (PORCINE) 5,000 UNITS/ML 1ML VIAL SQ SCH ×2 (09:47→21:30)
[2023-08-25] MEDS: BUDESONIDE/FORMETEROL FUMARATE 160/4.5 mcg INHALER IH SCH ×2 (09:48→21:33)
[2023-08-25] MEDS: VITAMIN B COMPLEX W/C COMBO TABLET (FP) PO SCH (09:49)
[2023-08-25 11:15] LABS: ANISOCYTOSIS 0; MACROCYTOSIS 0
[2023-08-25] MEDS: ATORVASTATIN CA 20 MG TABLET (FP) PO SCH (21:30)
[2023-08-25] MEDS: QUEtiapine FUMARATE 25 MG TABLET PO SCH (21:31)
[2023-08-25] MEDS: FLUPHENAZINE HCL PO SCH (21:33)
[2023-08-26] MEDS: methylPREDNISolone NA SUCC 40 MG/1 ML VIAL IVPUSH SCH ×3 (02:19→17:54)
[2023-08-26] MEDS: PIPERACILLIN/TAZOB 3.375 GM 3.375 GM in DEXTROSE 5%-WATER - 50 ML IVPB SCH ×4 (02:20→20:46)
[2023-08-26] MEDS: ALBUTEROL SO4 2.5/IPRATROPIUM 0.5 INH SOL 3 ML VIAL.NEB. NEB SCH ×4 (07:10→20:37)
[2023-08-26] MEDS: CHOLECALCIFEROL (VIT D3) 1,000 UNIT (25 MCG) TABLET PO SCH (12:04)
[2023-08-26] MEDS: HEPARIN NA (PORCINE) 5,000 UNITS/ML 1ML VIAL SQ SCH ×2 (12:04→21:19)
[2023-08-26] MEDS: BUDESONIDE/FORMETEROL FUMARATE 160/4.5 mcg INHALER IH SCH ×2 (12:05→21:20)
[2023-08-26] MEDS: VITAMIN B COMPLEX W/C COMBO TABLET (FP) PO SCH (12:05)
[2023-08-26] MEDS: ACETAMINOPHEN 325 MG TABLET (FP) PO PRN (19:03)
[2023-08-26] MEDS ORDERED: PIPERACILLIN/TAZOBACTAM 3.375 GM VIAL IVPB ONE (20:38)
[2023-08-26] MEDS: QUEtiapine FUMARATE 25 MG TABLET PO SCH (21:19)
[2023-08-26] MEDS: FLUPHENAZINE HCL PO SCH (21:20)
[2023-08-26] MEDS: ATORVASTATIN CA 20 MG TABLET (FP) PO SCH (21:20)
[2023-08-27] MEDS: methylPREDNISolone NA SUCC 40 MG/1 ML VIAL IVPUSH SCH ×3 (02:17→18:23)
[2023-08-27] MEDS: PIPERACILLIN/TAZOB 3.375 GM 3.375 GM in DEXTROSE 5%-WATER - 50 ML IVPB SCH ×4 (02:17→22:06)
[2023-08-27] MEDS: ALBUTEROL SO4 2.5/IPRATROPIUM 0.5 INH SOL 3 ML VIAL.NEB. NEB SCH ×4 (07:57→20:28)
[2023-08-27] MEDS: BUDESONIDE/FORMETEROL FUMARATE 160/4.5 mcg INHALER IH SCH ×2 (10:02→22:05)
[2023-08-27] MEDS: CHOLECALCIFEROL (VIT D3) 1,000 UNIT (25 MCG) TABLET PO SCH (10:02)
[2023-08-27] MEDS: HEPARIN NA (PORCINE) 5,000 UNITS/ML 1ML VIAL SQ SCH ×2 (10:03→22:05)
[2023-08-27] MEDS: VITAMIN B COMPLEX W/C COMBO TABLET (FP) PO SCH (10:03)
[2023-08-27] MEDS: ACETAMINOPHEN 325 MG TABLET (FP) PO PRN (19:22)
[2023-08-27] MEDS: FLUPHENAZINE HCL PO SCH (22:02)
[2023-08-27] MEDS ORDERED: PIPERACILLIN/TAZOBACTAM 3.375 GM VIAL IVPB ONE (22:04)
[2023-08-27] MEDS: QUEtiapine FUMARATE 25 MG TABLET PO SCH (22:05)
[2023-08-27] MEDS: ATORVASTATIN CA 20 MG TABLET (FP) PO SCH (22:05)
[2023-08-28] MEDS: PIPERACILLIN/TAZOB 3.375 GM 3.375 GM in DEXTROSE 5%-WATER - 50 ML IVPB SCH ×4 (02:05→22:02)
[2023-08-28] MEDS: methylPREDNISolone NA SUCC 40 MG/1 ML VIAL IVPUSH SCH ×3 (02:05→22:02)
[2023-08-28] MEDS: ALBUTEROL SO4 2.5/IPRATROPIUM 0.5 INH SOL 3 ML VIAL.NEB. NEB SCH ×2 (08:54→12:04)
[2023-08-28] MEDS: CHOLECALCIFEROL (VIT D3) 1,000 UNIT (25 MCG) TABLET PO SCH (09:15)
[2023-08-28] MEDS: HEPARIN NA (PORCINE) 5,000 UNITS/ML 1ML VIAL SQ SCH ×2 (09:16→22:02)
[2023-08-28] MEDS: VITAMIN B COMPLEX W/C COMBO TABLET (FP) PO SCH (09:17)
[2023-08-28] MEDS: BUDESONIDE/FORMETEROL FUMARATE 160/4.5 mcg INHALER IH SCH ×2 (09:18→23:00)
[2023-08-28] MEDS ORDERED: guaiFENesin 200 MG/10 ML 10 ML UNIT-DOSE CUPS PO PRN (11:31)
[2023-08-28] MEDS: ATORVASTATIN CA 20 MG TABLET (FP) PO SCH (22:03)
[2023-08-28] MEDS: FLUPHENAZINE HCL PO SCH (22:03)
[2023-08-28] MEDS: QUEtiapine FUMARATE 25 MG TABLET PO SCH (22:03)
[2023-08-29] MEDS: PIPERACILLIN/TAZOB 3.375 GM 3.375 GM in DEXTROSE 5%-WATER - 50 ML IVPB SCH ×2 (02:24→09:09)
[2023-08-29] MEDS: HEPARIN NA (PORCINE) 5,000 UNITS/ML 1ML VIAL SQ SCH ×2 (09:08→22:40)
[2023-08-29] MEDS: CHOLECALCIFEROL (VIT D3) 1,000 UNIT (25 MCG) TABLET PO SCH (09:08)
[2023-08-29] MEDS: BUDESONIDE/FORMETEROL FUMARATE 160/4.5 mcg INHALER IH SCH ×2 (09:09→22:42)
[2023-08-29] MEDS: methylPREDNISolone NA SUCC 40 MG/1 ML VIAL IVPUSH SCH ×2 (09:09→22:42)
[2023-08-29] MEDS: VITAMIN B COMPLEX W/C COMBO TABLET (FP) PO SCH (09:10)
[2023-08-29 10:25] LABS: HEMATOCRIT 34.3 % (32.4-45.2); HEMOGLOBIN 10.9 GM/dL (10.7-15.3); MCH 26.9 pg (25.7-33.7); MCHC 31.8 g/dl (32.0-36.0); MEAN CELL VOLUME 84.5 fl (80-96); MEAN PLT VOLUME 8.8 fl (7.5-11.1); PLATELET COUNT 469 10^3/uL (134-434); RBC 4.06 M/mm3 (3.60-5.2); RDW 16.1 % (11.6-15.6); WHITE BLOOD COUNT 28.8 K/mm3 (4.0-10.0)
[2023-08-29 10:45] LABS: POTASSIUM 4.4 mmol/L (3.5-5.1)
[2023-08-29 10:55] LABS: ALBUMIN 2.7 g/dl (3.4-5.0); CALCIUM 8.2 mg/dL (8.5-10.1)
[2023-08-29 10:56] LABS: BLOOD UREA NITROGEN 22.9 mg/dL (7-18)
[2023-08-29 10:58] LABS: CREATININE 0.5 mg/dL (0.55-1.3)
[2023-08-29 11:00] LABS: BILIRUBIN,TOTAL 0.2 mg/dL (0.2-1)
[2023-08-29] MEDS: ACETAMINOPHEN 325 MG TABLET (FP) PO PRN ×2 (14:09→22:38)
[2023-08-29] MEDS: ATORVASTATIN CA 20 MG TABLET (FP) PO SCH (22:41)
[2023-08-29] MEDS: QUEtiapine FUMARATE 25 MG TABLET PO SCH (22:41)
[2023-08-29] MEDS: FLUPHENAZINE HCL PO SCH (22:42)
[2023-08-30 09:47] LABS: HEMATOCRIT 36.2 % (32.4-45.2); HEMOGLOBIN 11.7 GM/dL (10.7-15.3); MCH 27.1 pg (25.7-33.7); MCHC 32.4 g/dl (32.0-36.0); MEAN CELL VOLUME 83.7 fl (80-96); MEAN PLT VOLUME 8.8 fl (7.5-11.1); PLATELET COUNT 470 10^3/uL (134-434); RBC 4.32 M/mm3 (3.60-5.2); RDW 15.9 % (11.6-15.6)
[2023-08-30 10:01] LABS: POTASSIUM 4.5 mmol/L (3.5-5.1); WHITE BLOOD COUNT 30.5 K/mm3 (4.0-10.0)
[2023-08-30 10:10] LABS: BLOOD UREA NITROGEN 22.7 mg/dL (7-18); CALCIUM 8.8 mg/dL (8.5-10.1)
[2023-08-30 10:13] LABS: CREATININE 0.5 mg/dL (0.55-1.3)
[2023-08-30] MEDS: CHOLECALCIFEROL (VIT D3) 1,000 UNIT (25 MCG) TABLET PO SCH (10:14)
[2023-08-30] MEDS: predniSONE 10 MG TABLET (UD) PO SCH (10:14)
[2023-08-30] MEDS: BUDESONIDE/FORMETEROL FUMARATE 160/4.5 mcg INHALER IH SCH ×2 (10:15→22:21)
[2023-08-30] MEDS: VITAMIN B COMPLEX W/C COMBO TABLET (FP) PO SCH (10:15)
[2023-08-30] MEDS: FLUPHENAZINE HCL PO SCH (22:19)
[2023-08-30] MEDS: ATORVASTATIN CA 20 MG TABLET (FP) PO SCH (22:20)
[2023-08-30] MEDS: QUEtiapine FUMARATE 25 MG TABLET PO SCH (22:20)
[2023-08-30 23:27] VITALS: TEMP 97.6
[2023-08-31 06:56] VITALS: BP 122/49; PULSE 59
[2023-08-31] MEDS ORDERED: busPIRone HCL 5 MG TABLET PO SCH (10:00)
[2023-08-31] MEDS: predniSONE 10 MG TABLET (UD) PO SCH (10:38)
[2023-08-31] MEDS: CHOLECALCIFEROL (VIT D3) 1,000 UNIT (25 MCG) TABLET PO SCH (10:38)
[2023-08-31] MEDS: VITAMIN B COMPLEX W/C COMBO TABLET (FP) PO SCH (10:39)
[2023-08-31] MEDS: BUDESONIDE/FORMETEROL FUMARATE 160/4.5 mcg INHALER IH SCH (10:39)
== END 2023-08-31 12:35 | disposition home health service (06) | DRG 190 ==
LOC: JER 22:02 → JERBED 08-23 04:50 → J8W 08-23 12:25
PROVIDERS: ADMIT Internal Medicine; ATTEND Internal Medicine
DX: J44.1 Chronic obstructive pulmonary disease with (acute) exacerbation (principal); J18.9 Pneumonia, unspecified organism; C34.92 Malignant neoplasm of unspecified part of left bronchus or lung; C77.9 Secondary and unspecified malignant neoplasm of lymph node, unspecified; E87.1 Hypo-osmolality and hyponatremia; R41.82 Altered mental status, unspecified; K59.00 Constipation, unspecified; E78.00 Pure hypercholesterolemia, unspecified; D72.829 Elevated white blood cell count, unspecified; F20.9 Schizophrenia, unspecified; K57.90 Diverticulosis of intestine, part unspecified, without perforation or abscess without bleeding; J44.0 Chronic obstructive pulmonary disease with (acute) lower respiratory infection; Z85.3 Personal history of malignant neoplasm of breast
CPT/HCPCS: 0241U-QW; 36415; 70450-TC; 71045-TC-FY; 71275-TC; 74178-TC; 80048; 80053; 81003; 82803; 82962; 83735; 84484; 85025; 85027; 85610; 85730; 87040; 87081; 87086; 87899; 88300-TC; 93005; 93010; 94640; 94761; 97116-GP; 97161-GP; 99285-25; J1644; Q9967

== ENCOUNTER 2023-09-16 10:51 | Inpatient (IN) | payer OTHER ==
[2023-09-16] MEDS ORDERED: ALBUTEROL SO4 2.5/IPRATROPIUM 0.5 INH SOL 3 ML VIAL.NEB. NEB ONE ×3 (11:43→20:16)
[2023-09-16 11:47] LABS: HEMATOCRIT 37.7 % (32.4-45.2); HEMOGLOBIN 12.2 GM/dL (10.7-15.3); MCH 27.4 pg (25.7-33.7); MCHC 32.4 g/dl (32.0-36.0); MEAN CELL VOLUME 84.4 fl (80-96); MEAN PLT VOLUME 9.1 fl (7.5-11.1); PLATELET COUNT 287 10^3/uL (134-434); RBC 4.47 M/mm3 (3.60-5.2); RDW 16.9 % (11.6-15.6); WHITE BLOOD COUNT 22.9 K/mm3 (4.0-10.0)
[2023-09-16] MEDS: ALBUTEROL SO4 2.5/IPRATROPIUM 0.5 INH SOL 3 ML VIAL.NEB. NEB SCH ×5 (11:49→20:14)
[2023-09-16 11:54] LABS: INR 1.14 (0.83-1.09); PROTHROMBIN TIME (PATIENT) 13.2 SEC (9.7-13.0)
[2023-09-16 11:56] LABS: ACTIVATED PTT 27.1 SECONDS (25.2-36.5)
[2023-09-16 12:06] LABS: POTASSIUM 4.8 mmol/L (3.5-5.1)
[2023-09-16 12:08] LABS: ALBUMIN 3.2 g/dl (3.4-5.0); BLOOD UREA NITROGEN 8.9 mg/dL (7-18)
[2023-09-16 12:11] LABS: CREATININE 0.5 mg/dL (0.55-1.3)
[2023-09-16 12:13] LABS: BILIRUBIN,TOTAL 0.5 mg/dL (0.2-1); TOT PROT 7.4 g/dl (6.4-8.2)
[2023-09-16] MEDS ORDERED: AZITHROMYCIN 250 MG TABLET PO ONE (12:35)
[2023-09-16] MEDS ORDERED: AZITHROMYCIN 500 MG TABLET ONE (12:46)
[2023-09-16 12:54] LABS: ANISOCYTOSIS 1+; MACROCYTOSIS 1+; OVALOCYTE 1+
[2023-09-16] MEDS ORDERED: ALBUTEROL SO4 2.5/IPRATROPIUM 0.5 INH SOL 3 ML VIAL.NEB. NEB PRN (14:13)
[2023-09-16] MEDS ORDERED: CEFTRIAXONE 1 GM/50 ML BAG ONE (15:21)
[2023-09-16] MEDS ORDERED: methylPREDNISolone NA SUCC 40 MG/1 ML VIAL ONE ×2 (15:22→21:56)
[2023-09-16] MEDS: methylPREDNISolone NA SUCC 40 MG/1 ML VIAL IVPUSH SCH ×2 (15:33→22:24)
[2023-09-16] MEDS: CEFTRIAXONE 1 GM in DEXTROSE 5%-WATER - 50 ML IVPB SCH (15:33)
[2023-09-16] MEDS: FLUTICASONE/UMECLIDIN/VILANTER(200-62.5-25 TRELEGY ELLIPTA) INAHLER IH SCH (20:01)
[2023-09-16] MEDS ORDERED: busPIRone HCL 5 MG TABLET ONE (21:56)
[2023-09-16] MEDS ORDERED: QUEtiapine FUMARATE 25 MG TABLET ONE (21:56)
[2023-09-16] MEDS ORDERED: ATORVASTATIN CA 20 MG TABLET (FP) ONE (21:56)
[2023-09-16] MEDS ORDERED: HEPARIN NA (PORCINE) 5,000 UNITS/ML 1ML VIAL ONE (21:56)
[2023-09-16] MEDS: ATORVASTATIN CA 20 MG TABLET (FP) PO SCH (22:21)
[2023-09-16] MEDS: HEPARIN NA (PORCINE) 5,000 UNITS/ML 1ML VIAL SQ SCH (22:21)
[2023-09-16] MEDS: busPIRone HCL 5 MG TABLET PO SCH (22:21)
[2023-09-16] MEDS: FLUPHENAZINE PO SCH (22:24)
[2023-09-16] MEDS: QUEtiapine FUMARATE 25 MG TABLET PO SCH (22:25)
[2023-09-17] MEDS ORDERED: methylPREDNISolone NA SUCC 40 MG/1 ML VIAL ONE ×2 (06:11→15:20)
[2023-09-17 06:24] LABS: HEMATOCRIT 30.3 % (32.4-45.2); HEMOGLOBIN 10.1 GM/dL (10.7-15.3); MCH 28.2 pg (25.7-33.7); MCHC 33.5 g/dl (32.0-36.0); MEAN CELL VOLUME 84.4 fl (80-96); MEAN PLT VOLUME 8.9 fl (7.5-11.1); PLATELET COUNT 263 10^3/uL (134-434); RBC 3.58 M/mm3 (3.60-5.2); RDW 17.1 % (11.6-15.6); WHITE BLOOD COUNT 27.6 K/mm3 (4.0-10.0)
[2023-09-17] MEDS: methylPREDNISolone NA SUCC 40 MG/1 ML VIAL IVPUSH SCH ×3 (06:24→21:43)
[2023-09-17 06:38] LABS: POTASSIUM 4.6 mmol/L (3.5-5.1)
[2023-09-17 06:45] LABS: ALBUMIN 2.7 g/dl (3.4-5.0); BLOOD UREA NITROGEN 14.1 mg/dL (7-18)
[2023-09-17 06:48] LABS: CREATININE 0.5 mg/dL (0.55-1.3)
[2023-09-17 06:50] LABS: BILIRUBIN,TOTAL 0.2 mg/dL (0.2-1)
[2023-09-17] MEDS ORDERED: ALBUTEROL SO4 2.5/IPRATROPIUM 0.5 INH SOL 3 ML VIAL.NEB. NEB ONE ×2 (08:12→15:20)
[2023-09-17] MEDS ORDERED: CEFTRIAXONE 1 GM/50 ML BAG ONE (08:12)
[2023-09-17] MEDS ORDERED: AZITHROMYCIN IVPB 500 MG/250 ML BAG IVPB ONE (08:13)
[2023-09-17] MEDS: ALBUTEROL SO4 2.5/IPRATROPIUM 0.5 INH SOL 3 ML VIAL.NEB. NEB SCH ×2 (08:18→15:25)
[2023-09-17] MEDS: CEFTRIAXONE 1 GM in DEXTROSE 5%-WATER - 50 ML IVPB SCH ×2 (08:19→10:16)
[2023-09-17] MEDS: AZITHROMYCIN IVPB 500 MG/250 ML BAG IVPB SCH ×2 (08:19→10:17)
[2023-09-17] MEDS: busPIRone HCL 5 MG TABLET PO SCH ×2 (10:13→21:45)
[2023-09-17] MEDS: HEPARIN NA (PORCINE) 5,000 UNITS/ML 1ML VIAL SQ SCH ×2 (10:13→21:44)
[2023-09-17] MEDS: FLUTICASONE/UMECLIDIN/VILANTER(200-62.5-25 TRELEGY ELLIPTA) INAHLER IH SCH (10:13)
[2023-09-17 11:16] LABS: ANISOCYTOSIS 0; HELMET CELLS 0; HOWELL-JOLLY BODIES 0; MACROCYTOSIS 0; OVALOCYTE 0; ROULEAU 0; SICKELED CELLS 0; TARGET CELLS 0; TEAR DROP CELLS 0; TOXIC GRANULATION 0
[2023-09-17] MEDS ORDERED: ACETAMINOPHEN 325 MG TABLET (FP) ONE (19:42)
[2023-09-17] MEDS: ACETAMINOPHEN 325 MG TABLET (FP) PO PRN (19:48)
[2023-09-17 19:49] VITALS: RESP 18
[2023-09-17] MEDS: QUEtiapine FUMARATE 25 MG TABLET PO SCH (21:44)
[2023-09-17] MEDS: FLUPHENAZINE PO SCH (21:45)
[2023-09-17] MEDS: ATORVASTATIN CA 20 MG TABLET (FP) PO SCH (21:45)
[2023-09-18] MEDS: methylPREDNISolone NA SUCC 40 MG/1 ML VIAL IVPUSH SCH ×3 (06:32→22:08)
[2023-09-18] MEDS: ALBUTEROL SO4 2.5/IPRATROPIUM 0.5 INH SOL 3 ML VIAL.NEB. NEB SCH ×3 (08:45→20:15)
[2023-09-18] MEDS: HEPARIN NA (PORCINE) 5,000 UNITS/ML 1ML VIAL SQ SCH ×2 (09:14→22:08)
[2023-09-18] MEDS: busPIRone HCL 5 MG TABLET PO SCH ×4 (09:14→22:24)
[2023-09-18] MEDS: CEFTRIAXONE 1 GM in DEXTROSE 5%-WATER - 50 ML IVPB SCH (09:14)
[2023-09-18] MEDS: AZITHROMYCIN IVPB 500 MG/250 ML BAG IVPB SCH (11:44)
[2023-09-18] MEDS: FLUTICASONE/UMECLIDIN/VILANTER(200-62.5-25 TRELEGY ELLIPTA) INAHLER IH SCH (14:02)
[2023-09-18 15:55] VITALS: BMI 18.8
[2023-09-18] MEDS: PIPERACILLIN/TAZOB 3.375 GM 3.375 GM in DEXTROSE 5%-WATER - 50 ML IVPB SCH (17:58)
[2023-09-18] MEDS: ATORVASTATIN CA 20 MG TABLET (FP) PO SCH (22:08)
[2023-09-18] MEDS: QUEtiapine FUMARATE 25 MG TABLET PO SCH (22:08)
[2023-09-18] MEDS: FLUPHENAZINE PO SCH (22:09)
[2023-09-18] MEDS: ACETAMINOPHEN 325 MG TABLET (FP) PO PRN (22:44)
[2023-09-19] MEDS: PIPERACILLIN/TAZOB 3.375 GM 3.375 GM in DEXTROSE 5%-WATER - 50 ML IVPB SCH ×4 (01:24→18:21)
[2023-09-19] MEDS: methylPREDNISolone NA SUCC 40 MG/1 ML VIAL IVPUSH SCH ×2 (05:41→21:49)
[2023-09-19] MEDS: ALBUTEROL SO4 2.5/IPRATROPIUM 0.5 INH SOL 3 ML VIAL.NEB. NEB SCH ×3 (07:40→20:03)
[2023-09-19] MEDS: busPIRone HCL 5 MG TABLET PO SCH ×2 (09:17→21:38)
[2023-09-19] MEDS: HEPARIN NA (PORCINE) 5,000 UNITS/ML 1ML VIAL SQ SCH ×2 (09:26→21:38)
[2023-09-19] MEDS: FLUTICASONE/UMECLIDIN/VILANTER(200-62.5-25 TRELEGY ELLIPTA) INAHLER IH SCH (09:27)
[2023-09-19] MEDS: POLYETHYLENE GLYCOL (HEALTHYLAX) 3350 17 GM PACKET PO SCH (11:13)
[2023-09-19] MEDS ORDERED: DOCUSATE SODIUM 100 MG CAPSULE (FP) PO PRN (16:54)
[2023-09-19] MEDS: MAGNESIUM HYDROX 2400MG/30ML ORAL SUSPENSION 30 ML CUP PO PRN (19:03)
[2023-09-19] MEDS: ATORVASTATIN CA 20 MG TABLET (FP) PO SCH (21:38)
[2023-09-19] MEDS: QUEtiapine FUMARATE 25 MG TABLET PO SCH (21:38)
[2023-09-19] MEDS: FLUPHENAZINE PO SCH (21:49)
[2023-09-20] MEDS: ACETAMINOPHEN 325 MG TABLET (FP) PO PRN (00:13)
[2023-09-20] MEDS: PIPERACILLIN/TAZOB 3.375 GM 3.375 GM in DEXTROSE 5%-WATER - 50 ML IVPB SCH ×2 (01:21→10:53)
[2023-09-20] MEDS: ALBUTEROL SO4 2.5/IPRATROPIUM 0.5 INH SOL 3 ML VIAL.NEB. NEB SCH ×2 (08:48→15:31)
[2023-09-20] MEDS: HEPARIN NA (PORCINE) 5,000 UNITS/ML 1ML VIAL SQ SCH (10:52)
[2023-09-20] MEDS: methylPREDNISolone NA SUCC 40 MG/1 ML VIAL IVPUSH SCH (10:52)
[2023-09-20] MEDS: busPIRone HCL 5 MG TABLET PO SCH (11:09)
[2023-09-20] MEDS: FLUTICASONE/UMECLIDIN/VILANTER(200-62.5-25 TRELEGY ELLIPTA) INAHLER IH SCH (11:09)
[2023-09-20] MEDS: POLYETHYLENE GLYCOL (HEALTHYLAX) 3350 17 GM PACKET PO SCH (11:09)
[2023-09-20] MEDS: MAGNESIUM HYDROX 2400MG/30ML ORAL SUSPENSION 30 ML CUP PO PRN (11:14)
[2023-09-20 15:54] VITALS: BP 134/72; PULSE 77; TEMP 98.1
== END 2023-09-20 16:41 | disposition home health service (06) | DRG 193 ==
LOC: JER 10:51 → OBSVTOIN 13:29 → JERBED 13:29 → J8W 09-17 20:45
PROVIDERS: ADMIT Internal Medicine; ATTEND Internal Medicine
DX: J18.9 Pneumonia, unspecified organism (principal); J96.01 Acute respiratory failure with hypoxia; J44.1 Chronic obstructive pulmonary disease with (acute) exacerbation; C34.90 Malignant neoplasm of unspecified part of unspecified bronchus or lung; J44.0 Chronic obstructive pulmonary disease with (acute) lower respiratory infection; E44.0 Moderate protein-calorie malnutrition; Z68.1 Body mass index [BMI] 19.9 or less, adult; E78.5 Hyperlipidemia, unspecified
CPT/HCPCS: 0241U-QW; 36415; 71045-TC-FY; 80053; 84484; 85025; 85610; 85730; 93005; 93010; 94640; 94761; 99285-25; J1644

== ENCOUNTER 2023-09-21 09:30 | Inpatient (IN) | payer OTHER ==
[2023-09-21] MEDS ORDERED: LACTATED RINGERS SOLUTION 1000 ML INFUS.BAG IV ONE ×2 (10:15→15:30)
[2023-09-21 10:55] LABS: EPI CELLS 13 /uL (0-25.1); HYALINE CASTS 1 /uL (0-3.1); PH,URINE 7.5 (5.0-8.0); URINE APPEARANCE CLEAR; URINE BACTERIA 356 /uL (0-1359); URINE BILIRUBIN NEGATIVE (NEGATIVE); URINE COLOR YELLOW; URINE GLUCOSE (UA) NEGATIVE (NEGATIVE); URINE KETONE NEGATIVE (NEGATIVE); URINE LEUK ESTERASE 1+ (NEGATIVE); URINE NITRITE NEGATIVE (NEGATIVE); URINE PROTEIN NEGATIVE (NEGATIVE); URINE RBC 112 /uL (0-23.9); URINE UROBILINOGEN 0.2 mg/dL (0.2-1.0); URINE WBC 21 /uL (0-25.8)
[2023-09-21 10:56] LABS: HEMATOCRIT 37.4 % (32.4-45.2); HEMOGLOBIN 12.6 GM/dL (10.7-15.3); MCH 28.5 pg (25.7-33.7); MCHC 33.7 g/dl (32.0-36.0); MEAN CELL VOLUME 84.8 fl (80-96); MEAN PLT VOLUME 8.6 fl (7.5-11.1); PLATELET COUNT 210 10^3/uL (134-434); RBC 4.41 M/mm3 (3.60-5.2); RDW 17.1 % (11.6-15.6)
[2023-09-21 11:02] LABS: WHITE BLOOD COUNT 53.2 K/mm3 (4.0-10.0)
[2023-09-21 11:03] LABS: CHLORIDE 108 mmol/L (98-107); POTASSIUM 4.1 mmol/L (3.5-5.1); SODIUM 135 mmol/L (136-145)
[2023-09-21 11:05] LABS: ANION GAP 16 mmol/L (4-13); CO2 12 mmol/L (21-32)
[2023-09-21 11:06] LABS: BLOOD UREA NITROGEN 7.8 mg/dL (7-18)
[2023-09-21 11:08] LABS: SGPT/ALT 8 U/L (13-61)
[2023-09-21 11:09] LABS: SGOT/AST 5 U/L (15-37)
[2023-09-21 11:10] LABS: BILIRUBIN,TOTAL 0.1 mg/dL (0.2-1)
[2023-09-21 11:17] LABS: ANISOCYTOSIS 0; MACROCYTOSIS 0
[2023-09-21 11:41] LABS: ALBUMIN 0.9 g/dl (3.4-5.0); ALK PHOS 32 U/L (45-117); CALCIUM 6.6 mg/dL (8.5-10.1); GLUCOSE,RANDOM 33 mg/dL (74-106)
[2023-09-21 11:44] LABS: CREATININE < 0.2 mg/dL (0.55-1.3)
[2023-09-21] MEDS ORDERED: DEXTROSE 50%-WATER - 25 GM/50 ML VIAL IVPUSH ONE (11:45)
[2023-09-21 14:37] LABS: LACTIC ACID 2.5 mmol/L (0.4-2.0)
[2023-09-21] MEDS ORDERED: SODIUM BICARBONATE 8.4% 50 MEQ/50 ML DISP.SYRIN IVPUSH ONE (17:58)
[2023-09-21] MEDS ORDERED: DEXTROSE 5%-0.45% SALINE 950 ML with SODIUM BICARBONATE 8.4% - 50 MEQ IV SCH (18:00)
[2023-09-21] MEDS: VANCOMYCIN ORAL SOLUTION 125 MG/2.5 ML PO SCH ×2 (18:26→23:53)
[2023-09-21] MEDS: SODIUM BICARBONATE 8.4% - 50 MEQ in DEXTROSE 5%-0.45% SALINE 1,000 ML IV SCH (20:09)
[2023-09-22 01:27] VITALS: BMI 19.5
[2023-09-22] MEDS ORDERED: QUEtiapine FUMARATE 25 MG TABLET PO ONE (01:52)
[2023-09-22] MEDS: SODIUM BICARBONATE 8.4% - 50 MEQ in DEXTROSE 5%-0.45% SALINE 1,000 ML IV SCH ×3 (05:20→23:50)
[2023-09-22] MEDS: VANCOMYCIN ORAL SOLUTION 125 MG/2.5 ML PO SCH ×4 (06:03→23:49)
[2023-09-22 09:21] LABS: BLOOD UREA NITROGEN 10.5 mg/dL (7-18)
[2023-09-22 09:24] LABS: CREATININE 0.4 mg/dL (0.55-1.3)
[2023-09-22 09:26] LABS: BILIRUBIN,TOTAL 0.3 mg/dL (0.2-1)
[2023-09-22 09:30] LABS: ALBUMIN 2.2 g/dl (3.4-5.0); CALCIUM 8.1 mg/dL (8.5-10.1)
[2023-09-22] MEDS ORDERED: ALBUTEROL SO4 2.5/IPRATROPIUM 0.5 INH SOL 3 ML VIAL.NEB. NEB PRN (11:32)
[2023-09-22] MEDS ORDERED: fluPHENAZine DECANOATE 125 MG/5ML VIAL IM ONE (12:22)
[2023-09-22] MEDS ORDERED: QUEtiapine FUMARATE 25 MG TABLET PO SCH (22:00)
[2023-09-22] MEDS: busPIRone HCL 5 MG TABLET PO SCH ×2 (23:20→23:42)
[2023-09-22] MEDS: ATORVASTATIN CA 20 MG TABLET (FP) PO SCH (23:42)
[2023-09-22] MEDS: FLUPHENAZINE PO SCH (23:42)
[2023-09-22] MEDS: QUEtiapine FUMARATE 25 MG TABLET PO SCH (23:43)
[2023-09-23] MEDS: VANCOMYCIN ORAL SOLUTION 125 MG/2.5 ML PO SCH ×3 (06:20→18:06)
[2023-09-23] MEDS ORDERED: FLUPHENAZINE PO SCH (10:00)
[2023-09-23] MEDS: busPIRone HCL 5 MG TABLET PO SCH ×4 (10:00→22:57)
[2023-09-23] MEDS: FLUTICASONE/UMECLIDIN/VILANTER(200-62.5-25 TRELEGY ELLIPTA) INAHLER IH SCH (11:30)
[2023-09-23] MEDS: predniSONE 20 MG TABLET (UD) PO SCH (11:31)
[2023-09-23] MEDS: SODIUM BICARBONATE 8.4% - 50 MEQ in DEXTROSE 5%-0.45% SALINE 1,000 ML IV SCH (11:31)
[2023-09-23] MEDS ORDERED: fluPHENAZine DECANOATE 125 MG/5ML VIAL IM ONE (12:00)
[2023-09-23] MEDS: ATORVASTATIN CA 20 MG TABLET (FP) PO SCH (22:51)
[2023-09-23] MEDS: FLUPHENAZINE PO SCH (22:52)
[2023-09-23] MEDS: QUEtiapine FUMARATE 25 MG TABLET PO SCH (22:52)
[2023-09-24] MEDS: VANCOMYCIN ORAL SOLUTION 125 MG/2.5 ML PO SCH ×2 (00:47→06:50)
[2023-09-24 09:15] LABS: HEMATOCRIT 32.2 % (32.4-45.2); HEMOGLOBIN 10.4 GM/dL (10.7-15.3); MCH 27.4 pg (25.7-33.7); MCHC 32.4 g/dl (32.0-36.0); MEAN CELL VOLUME 84.8 fl (80-96); MEAN PLT VOLUME 8.5 fl (7.5-11.1); PLATELET COUNT 301 10^3/uL (134-434); RBC 3.79 M/mm3 (3.60-5.2); RDW 16.6 % (11.6-15.6)
[2023-09-24 09:19] LABS: WHITE BLOOD COUNT 48.2 K/mm3 (4.0-10.0)
[2023-09-24 09:29] LABS: POTASSIUM 4.2 mmol/L (3.5-5.1)
[2023-09-24 09:31] LABS: ALBUMIN 2.4 g/dl (3.4-5.0); BLOOD UREA NITROGEN 16.2 mg/dL (7-18); CALCIUM 8.8 mg/dL (8.5-10.1)
[2023-09-24 09:34] LABS: CREATININE 0.4 mg/dL (0.55-1.3)
[2023-09-24 09:36] LABS: BILIRUBIN,TOTAL 0.2 mg/dL (0.2-1); TOT PROT 5.3 g/dl (6.4-8.2)
[2023-09-24 11:32] LABS: ANISOCYTOSIS 0; MACROCYTOSIS 0
[2023-09-24] MEDS: busPIRone HCL 5 MG TABLET PO SCH ×2 (11:49→23:24)
[2023-09-24] MEDS: predniSONE 20 MG TABLET (UD) PO SCH (11:50)
[2023-09-24] MEDS: FLUTICASONE/UMECLIDIN/VILANTER(200-62.5-25 TRELEGY ELLIPTA) INAHLER IH SCH (11:51)
[2023-09-24] MEDS: ACETAMINOPHEN 325 MG TABLET (FP) PO PRN ×2 (16:06→23:31)
[2023-09-24] MEDS: FLUPHENAZINE PO SCH (23:26)
[2023-09-24] MEDS: QUEtiapine FUMARATE 25 MG TABLET PO SCH (23:26)
[2023-09-24] MEDS: ATORVASTATIN CA 20 MG TABLET (FP) PO SCH (23:26)
[2023-09-25] MEDS: predniSONE 20 MG TABLET (UD) PO SCH (11:21)
[2023-09-25] MEDS: busPIRone HCL 5 MG TABLET PO SCH ×3 (11:21→21:39)
[2023-09-25] MEDS: FLUTICASONE/UMECLIDIN/VILANTER(200-62.5-25 TRELEGY ELLIPTA) INAHLER IH SCH (11:21)
[2023-09-25] MEDS: QUEtiapine FUMARATE 25 MG TABLET PO SCH (21:39)
[2023-09-25] MEDS: ATORVASTATIN CA 20 MG TABLET (FP) PO SCH (21:39)
[2023-09-25] MEDS: FLUPHENAZINE PO SCH (21:39)
[2023-09-25] MEDS: ACETAMINOPHEN 325 MG TABLET (FP) PO PRN (21:39)
[2023-09-26] MEDS: predniSONE 20 MG TABLET (UD) PO SCH (09:55)
[2023-09-26] MEDS: busPIRone HCL 5 MG TABLET PO SCH (09:55)
[2023-09-26] MEDS: FLUTICASONE/UMECLIDIN/VILANTER(200-62.5-25 TRELEGY ELLIPTA) INAHLER IH SCH (09:56)
[2023-09-26] MEDS: ACETAMINOPHEN 325 MG TABLET (FP) PO PRN (11:13)
[2023-09-26 15:37] VITALS: BP 129/53; PULSE 70; RESP 18; TEMP 97.7
== END 2023-09-26 17:30 | DRG 394 ==
LOC: JER 09:30 → JERBED 15:27 → OBSVTOIN 15:27 → J7W 23:40
PROVIDERS: ADMIT Internal Medicine; ATTEND Internal Medicine
DX: K52.1 Toxic gastroenteritis and colitis (principal); C34.90 Malignant neoplasm of unspecified part of unspecified bronchus or lung; E87.20 Acidosis, unspecified; J44.1 Chronic obstructive pulmonary disease with (acute) exacerbation; J44.9 Chronic obstructive pulmonary disease, unspecified; E78.5 Hyperlipidemia, unspecified; F20.9 Schizophrenia, unspecified; D72.829 Elevated white blood cell count, unspecified; T36.95XA Adverse effect of unspecified systemic antibiotic, initial encounter; R82.71 Bacteriuria
CPT/HCPCS: 0241U-QW; 36415; 74177-TC; 80053; 81003; 82272; 82962; 83605; 85025; 87040; 87045; 87046; 87086; 87186; 87205; 87209; 87324; 87449; 93005; 93010; 97116-GP; 97162-GP; 99285-25; Q9967

== ENCOUNTER 2023-12-11 10:06 | Inpatient (IN) | payer OTHER ==
[2023-12-11 12:03] LABS: HEMATOCRIT 32.2 % (32.4-45.2); HEMOGLOBIN 10.2 GM/dL (10.7-15.3); MCH 26.9 pg (25.7-33.7); MCHC 31.6 g/dl (32.0-36.0); MEAN CELL VOLUME 85.1 fl (80-96); MEAN PLT VOLUME 8.7 fl (7.5-11.1); PLATELET COUNT 450 10^3/uL (134-434); RBC 3.79 M/mm3 (3.60-5.2); RDW 17.1 % (11.6-15.6)
[2023-12-11 12:08] LABS: WHITE BLOOD COUNT 45.5 K/mm3 (4.0-10.0)
[2023-12-11 12:09] LABS: INR 1.16 (0.83-1.09); PROTHROMBIN TIME (PATIENT) 13.4 SEC (9.7-13.0)
[2023-12-11 12:12] LABS: ACTIVATED PTT 26.1 SECONDS (25.2-36.5)
[2023-12-11 12:25] LABS: POTASSIUM 4.5 mmol/L (3.5-5.1)
[2023-12-11 12:27] LABS: CALCIUM 9.6 mg/dL (8.5-10.1)
[2023-12-11 12:28] LABS: ALBUMIN 2.7 g/dl (3.4-5.0); BLOOD UREA NITROGEN 8.2 mg/dL (7-18)
[2023-12-11 12:31] LABS: CREATININE 0.4 mg/dL (0.55-1.3)
[2023-12-11 12:32] LABS: BILIRUBIN,TOTAL 0.5 mg/dL (0.2-1); TOT PROT 6.4 g/dl (6.4-8.2)
[2023-12-11] MEDS ORDERED: ALBUTEROL SO4 2.5/IPRATROPIUM 0.5 INH SOL 3 ML VIAL.NEB. NEB PRN (21:13)
[2023-12-11] MEDS: FLUPHENAZINE PO SCH (22:05)
[2023-12-11] MEDS: ATORVASTATIN CA 20 MG TABLET (FP) PO SCH (22:06)
[2023-12-11] MEDS: QUEtiapine FUMARATE 25 MG TABLET PO SCH (22:06)
[2023-12-12 07:42] LABS: HEMATOCRIT 28.6 % (32.4-45.2); HEMOGLOBIN 9.4 GM/dL (10.7-15.3); MCH 27.7 pg (25.7-33.7); MCHC 32.9 g/dl (32.0-36.0); MEAN CELL VOLUME 84.1 fl (80-96); MEAN PLT VOLUME 9.1 fl (7.5-11.1); PLATELET COUNT 440 10^3/uL (134-434); RBC 3.41 M/mm3 (3.60-5.2); RDW 17.3 % (11.6-15.6)
[2023-12-12 07:57] LABS: POTASSIUM 4.1 mmol/L (3.5-5.1)
[2023-12-12 08:01] LABS: WHITE BLOOD COUNT 39.3 K/mm3 (4.0-10.0)
[2023-12-12 08:11] LABS: CALCIUM 9.2 mg/dL (8.5-10.1)
[2023-12-12 08:12] LABS: BLOOD UREA NITROGEN 9.4 mg/dL (7-18); MAGNESIUM 2.3 mg/dL (1.8-2.4)
[2023-12-12 08:15] LABS: CREATININE 0.4 mg/dL (0.55-1.3)
[2023-12-12 08:35] LABS: ANISOCYTOSIS 3+; MACROCYTOSIS 0
[2023-12-12] MEDS: FLUTICASONE/UMECLIDIN/VILANTER(200-62.5-25 TRELEGY ELLIPTA) INAHLER IH SCH (10:11)
[2023-12-12] MEDS ORDERED: SODIUM CHLORIDE NASAL SPRAY 44 ML BOTTLE NS PRN (15:00)
[2023-12-12] MEDS ORDERED: ALBUTEROL SO4 0.083% IH SOL 2.5 MG/3 ML VIAL.NEB. NEB PRN (15:48)
[2023-12-12] MEDS: ALPRAZolam 0.25 MG TABLET PO PRN (21:20)
[2023-12-13] MEDS: ACETAMINOPHEN 325 MG TABLET (FP) PO PRN (17:31)
[2023-12-14 10:38] LABS: HEMATOCRIT 29.9 % (32.4-45.2); HEMOGLOBIN 9.5 GM/dL (10.7-15.3); MCH 26.6 pg (25.7-33.7); MCHC 31.8 g/dl (32.0-36.0); MEAN CELL VOLUME 83.7 fl (80-96); MEAN PLT VOLUME 8.6 fl (7.5-11.1); PLATELET COUNT 399 10^3/uL (134-434); RBC 3.57 M/mm3 (3.60-5.2); RDW 16.9 % (11.6-15.6)
[2023-12-14 10:44] LABS: WHITE BLOOD COUNT 43.6 K/mm3 (4.0-10.0)
[2023-12-14 10:54] LABS: POTASSIUM 4.2 mmol/L (3.5-5.1)
[2023-12-14 10:59] LABS: ALBUMIN 2.3 g/dl (3.4-5.0); CALCIUM 9.2 mg/dL (8.5-10.1)
[2023-12-14 11:02] LABS: ANISOCYTOSIS 2+; CREATININE 0.4 mg/dL (0.55-1.3); MACROCYTOSIS 0
[2023-12-14 11:04] LABS: BILIRUBIN,TOTAL 0.4 mg/dL (0.2-1); TOT PROT 5.8 g/dl (6.4-8.2)
[2023-12-14] MEDS: MAGNESIUM HYDROX 2400MG/30ML ORAL SUSPENSION 30 ML CUP PO ONE (21:02)
[2023-12-14] MEDS: HEPARIN NA (PORCINE) 5,000 UNITS/ML 1ML VIAL SQ SCH (21:03)
[2023-12-15] MEDS: DOCUSATE SODIUM 100 MG CAPSULE (FP) PO PRN (16:12)
[2023-12-16] MEDS ORDERED: oxyCODONE HCL 5 MG TABLET PO PRN (14:11)
[2023-12-16] MEDS: ALPRAZolam 0.25 MG TABLET PO PRN (16:45)
[2023-12-17 11:40] VITALS: BMI 19.1
[2023-12-17 18:40] VITALS: RESP 18
[2023-12-18 14:20] VITALS: BP 119/62; PULSE 77; TEMP 97.5
== END 2023-12-18 17:01 | DRG 180 ==
LOC: JER 10:06 → JERBED 17:31 → UNDOADMIN 17:31 → JERBED 17:38 → J4S 18:48
PROVIDERS: ADMIT Internal Medicine; ATTEND Internal Medicine
DX: C34.90 Malignant neoplasm of unspecified part of unspecified bronchus or lung (principal); E43 Unspecified severe protein-calorie malnutrition; E87.1 Hypo-osmolality and hyponatremia; J98.11 Atelectasis; J90 Pleural effusion, not elsewhere classified; J44.1 Chronic obstructive pulmonary disease with (acute) exacerbation; J98.19 Other pulmonary collapse; Z68.1 Body mass index [BMI] 19.9 or less, adult; F20.9 Schizophrenia, unspecified; J44.9 Chronic obstructive pulmonary disease, unspecified; I10 Essential (primary) hypertension; D64.9 Anemia, unspecified; E78.5 Hyperlipidemia, unspecified
CPT/HCPCS: 36415; 70450-TC; 71250-TC; 80048; 80053; 82962; 83735; 84100; 85025; 85610; 85730; 87040; 93005; 93010; 93970-TC; 97161-GP; 99285-25; J1644